=== PATIENT | male | born 1940 | race Caucasian/White ===

== ENCOUNTER → 2018-07-23 | Outpatient (CLI) | payer OTHER ==
[~2018-07-23] MED LIST: /TAMS4CA; ACET65TA; AGGRCAP; ALLO300T; AMIT25TA2; AMITRIPTYLINE; ATENPOW; AVAP300T; BABY81CH; CATA0.2T; JANUVIA; KLOR10TA; LASI40TA; ROSU10TA; TENO50TA; TERA5CAP
--- NOTE | 2018-07-23 09:40 | REP ---
Chest two views HISTORY: Cough miles Comparison: None The lungs are clear. The heart is normal in size. The pulmonary vasculature is normal in appearance. The bony structure is intact. IMPRESSION: No acute disease. Electronically Signed by Oscar Block MD 07/23/2018 09:31 A
== END ==
LOC: M WUC 09:16
PROVIDERS: ATTEND Internal Medicine
DX: R05 Cough (principal); R49.0 Dysphonia; E78.00 Pure hypercholesterolemia, unspecified

== ENCOUNTER → 2018-07-23 | Outpatient (REF) | payer OTHER ==
[2018-07-25 08:41] LABS: LDL DIRECT 110 mg/dL (0-99)
== END ==
LOC: M LAB REF 16:39
PROVIDERS: ATTEND Internal Medicine
DX: E78.00 Pure hypercholesterolemia, unspecified (principal)

== ENCOUNTER → 2018-12-26 | Outpatient (CLI) | payer MEDICARE ==
[~2018-12-26] MED LIST changes: -/TAMS4CA; +AGGR1CAP; -AGGRCAP; +CRES10TA32; +FLOM0.4C39; -ROSU10TA
--- NOTE | 2018-12-26 12:33 | REP ---
Clinical: Dizziness . Technique: Bosch scale and color Doppler evaluation using linear high frequency transducer Findings: Two-dimensional bosch scale and color images demonstrate mild mixed atheromatous plaquing with normal laminar flow and no appreciable narrowing. Color Doppler interrogation demonstrates normal arterial wave patterns and velocities with scattered spectral broadening. Normal flow direction is appreciated in the bilateral vertebral arteries. RIGHT (cm/s) LEFT (cm/s) ICA peak systolic velocity 103.0 87.8 ICA diastolic velocity 30.1 31.3 ECA peak systolic velocity 72.0 90.4 CCA peak systolic velocity 76.4 73.8 ICA/CCA ratio 1.35 1.19 Impression: No hemodynamically significant areas of narrowing or stenosis appreciated. Based on set standards narrowing falls within the less than 50% range. Electronically Signed by Jovon Chacon MD 12/26/2018 12:25 P
== END ==
LOC: M RAD 10:59
PROVIDERS: ATTEND Internal Medicine Cardiovascular Disease
DX: R42 Dizziness and giddiness (principal); I25.119 Atherosclerotic heart disease of native coronary artery with unspecified angina pectoris

== ENCOUNTER → 2019-02-24 | Outpatient (REF) | payer MEDICARE ==
[2019-02-24 20:58] LABS: FOLATE > 24.0 NG/ML; VITAMIN B12 LEVEL 570 PG/ML
== END ==
LOC: M LAB REF 16:56
PROVIDERS: ATTEND Internal Medicine
DX: E11.42 Type 2 diabetes mellitus with diabetic polyneuropathy (principal)

== ENCOUNTER → 2020-12-01 | Outpatient (REF) | payer MEDICARE | LOC: M LAB REF 17:14 | PROVIDERS: ATTEND Internal Medicine | DX: H53.8 Other visual disturbances (principal) ==

== ENCOUNTER → 2021-01-11 | Outpatient (REF) | payer MEDICARE ==
[2021-01-11 17:36] LABS: FOLATE 7.7 NG/ML; TOTAL PROTEIN 6.8 GM/DL (6.4-8.2)
== END ==
LOC: M LAB REF 16:20
PROVIDERS: ATTEND Internal Medicine
DX: E53.8 Deficiency of other specified B group vitamins (principal); G60.9 Hereditary and idiopathic neuropathy, unspecified

== ENCOUNTER → 2021-03-02 | Outpatient (REF) | payer MEDICARE ==
[2021-03-02 16:53] LABS: TOTAL PROTEIN 6.4 GM/DL (6.4-8.2)
[2021-03-02 17:01] LABS: VITAMIN B12 LEVEL 334 PG/ML
[2021-03-02 17:02] LABS: FOLATE 9.7 NG/ML
[2021-03-07 08:46] LABS: ALBUMIN 3.81 GM/DL (3.29-5.55); ALBUMIN % 59.5 % (55.8-66.1); ALPHA-1-GLOBULIN % 3.7 % (2.9-4.9); ALPHA-1-GLOBULINS 0.24 GM/DL (0.17-0.41); ALPHA-2-GLOBULINS % 10.9 % (7.1-11.8); BETA-1-GLOBULINS 0.43 GM/DL (0.28-0.60); BETA-1-GLOBULINS % 6.7 % (4.7-7.2); BETA-2-GLOBULINS 0.33 GM/DL (0.19-0.55); BETA-2-GLOBULINS % 5.2 % (3.2-6.5)
[2021-03-07 09:15] LABS: IMMUNOTYPING SERUM IGM ABNORMAL (NORMAL); IMMUNOTYPING SERUM KAPPA ABNORMAL (NORMAL)
== END ==
LOC: M LAB REF 16:00
PROVIDERS: ATTEND Internal Medicine
DX: E53.9 Vitamin B deficiency, unspecified (principal); G62.9 Polyneuropathy, unspecified

== ENCOUNTER → 2021-06-08 | Outpatient (CLI) | payer MEDICARE ==
--- NOTE | 2021-06-08 09:26 | REP ---
INDICATION: FATTY LIVER COMPARISON: None. TECHNIQUE: Real time arthur scale ultrasound examination using curved array transducer. FINDINGS: Liver is diffusely echogenic with poor through transmission and areas of fatty sparing adjacent to the gallbladder fossa. Possible small 1.3 cm hepatic cyst in the right lobe. Pancreas is incompletely evaluated due to interposed bowel gas. The gallbladder is normal and without gallstones, wall thickening, or pericholecystic fluid. No biliary ductal dilatation is appreciated and the common bile duct measures 3.3 mm diameter. Right kidney is normal in reniform shape without hydronephrosis and measures 11.4 x 5.7 x 5.9 cm. No ascites in the visualized right upper quadrant. IMPRESSION: Hepatosteatosis. <Electronically signed by Jovon Chacon > 06/08/21 [id number]
== END ==
LOC: M RAD 08:38
PROVIDERS: ATTEND Internal Medicine
DX: K76.0 Fatty (change of) liver, not elsewhere classified (principal)

== ENCOUNTER → 2021-10-18 | Outpatient (CLI) | payer MEDICARE ==
[2021-10-18 22:35] LABS: FOLATE 6.4 NG/ML
== END ==
LOC: M WUC 10:07
PROVIDERS: ATTEND Physician Assistant Medical
DX: R06.02 Shortness of breath (principal); R42 Dizziness and giddiness; E53.9 Vitamin B deficiency, unspecified; Z79.899 Other long term (current) drug therapy; Z79.82 Long term (current) use of aspirin

== ENCOUNTER → 2023-07-11 | Outpatient (CLI) | payer MEDICARE ==
[2023-07-11 13:32] LABS: BLOOD UREA NITROGEN 12 MG/DL (9-23); CALCIUM LEVEL 8.3 MG/DL (8.3-10.6); CARBON DIOXIDE LEVEL 30 MMOL/L (20-31); CHLORIDE LEVEL 106 MMOL/L (98-107); CREATININE FOR GFR 1.18 MG/DL (0.70-1.30); GLOMERULAR FILTRATION RATE > 60.0 (>35); GLUCOSE, FASTING 103 MG/DL (74-106); POTASSIUM SERUM 3.7 MMOL/L (3.5-5.1); SODIUM LEVEL 143 MMOL/L (136-145)
== END ==
LOC: M WUC 09:46
PROVIDERS: ATTEND Orthopaedic Surgery Orthopaedic Surgery of the Spine
DX: Z01.818 Encounter for other preprocedural examination (principal); M54.50 Low back pain, unspecified

== ENCOUNTER → 2023-08-08 | Outpatient (REF) | payer MEDICARE | LOC: M LABSMT 13:43 | PROVIDERS: ATTEND Physician Assistant | DX: R33.9 Retention of urine, unspecified (principal); Z53.9 Procedure and treatment not carried out, unspecified reason ==

== ENCOUNTER → 2023-09-03 | Outpatient (CLI) | payer MEDICARE ==
[~2023-09-03] MED LIST changes: +ALLO300T2 PO; +ATOR40TA75 PO; +BUPR150T12 PO; +CLIN-250; +CLOP75TA2 PO; +FINA5TAB2 PO; +FURO40TA2 PO; +GABA-282 PO; +HYDR-3713; +HYDR-3713 PO; +JARD1TAB PO; +LEXA1TAB PO; +METF500T13 PO; +MIDO2.5T PO; +OXYB5TAB14 PO; +POTA1TAB24 PO; +TAMS1CAP17 PO; +TERA10CA3; +TRAZ-252 PO; +TRES1INJ SQ
== END ==
LOC: M LAB 13:46
PROVIDERS: ATTEND Urology
DX: R33.9 Retention of urine, unspecified (principal); Z12.5 Encounter for screening for malignant neoplasm of prostate

== ENCOUNTER → 2023-09-03 | Outpatient (CLI) | payer MEDICARE ==
[2023-09-03 15:13] LABS: HEMATOCRIT 40.6 % (42.0-52.0); HEMOGLOBIN 13.1 g/dl (13.5-17.5); MEAN CORPUSCULAR HEMOGLOBIN 28.1 pg (27.0-33.0); MEAN CORPUSCULAR HGB CONC 32.3 g/dl (32.0-36.5); MEAN CORPUSCULAR VOLUME 86.9 fl (80.0-96.0); PLATELET COUNT, AUTOMATED 265 10^3/uL (150-450); RED BLOOD COUNT 4.67 10^6/uL (4.30-6.10); WHITE BLOOD COUNT 9.9 10^3/uL (4.0-10.0)
[2023-09-03 15:42] LABS: ALBUMIN 3.7 G/DL (3.2-5.2); ALKALINE PHOSPHATASE 124 U/L (46-116); ALT/SGPT 14 U/L (7.0-40); AST/SGOT 11 U/L (<34); BILIRUBIN,TOTAL 0.4 MG/DL (0.3-1.2); BLOOD UREA NITROGEN 17 MG/DL (9-23); CALCIUM LEVEL 8.9 MG/DL (8.3-10.6); CARBON DIOXIDE LEVEL 28 MMOL/L (20-31); CHLORIDE LEVEL 100 MMOL/L (98-107); CREATININE FOR GFR 1.09 MG/DL (0.70-1.30); GLOMERULAR FILTRATION RATE > 60.0 (>35); GLUCOSE, FASTING 169 MG/DL (74-106); POTASSIUM SERUM 3.8 MMOL/L (3.5-5.1); SODIUM LEVEL 137 MMOL/L (136-145); TOTAL PROTEIN 6.7 G/DL (5.7-8.2)
== END ==
LOC: M RAD 13:44
PROVIDERS: ATTEND Physician Assistant
DX: I44.0 Atrioventricular block, first degree (principal); I45.10 Unspecified right bundle-branch block; R33.9 Retention of urine, unspecified

== ENCOUNTER 2023-09-09 06:00 | Day surgery (SDC) | payer MEDICARE ==
[~2023-09-09] VITALS: Ht 177.8 cm; Wt 107.5 kg
[~2023-09-09 06:00] MED LIST changes: -CLIN-250; -LEXA1TAB PO; -OXYB5TAB14 PO; -TERA10CA3
[2023-09-09] MEDS ORDERED: TERA10CA3 (06:40)
[2023-09-09] MEDS ORDERED: LEXA1TAB PO (06:40)
[2023-09-09] MEDS ORDERED: CLIN-250 (06:40)
[2023-09-09] MEDS ORDERED: ISOVUE-300 61% 100ML VIAL As Ordered ONE (07:08)
[2023-09-09] MEDS ORDERED: propofoL 200 MG/20 ML VIAL As Ordered ONE (07:15)
[2023-09-09] MEDS ORDERED: fentaNYL 100 MCG/2 ML INJECTION As Ordered ONE (07:15)
[2023-09-09] MEDS ORDERED: METOCLOPRAMIDE INJ 10MG/2ML VIAL As Ordered ONE (07:15)
[2023-09-09] MEDS ORDERED: ONDANSETRON 4MG 2ML VIAL As Ordered ONE (07:15)
[2023-09-09] MEDS ORDERED: LIDOCAINE 2% 100MG/5ML SDV (FOR ANES.) As Ordered ONE (07:15)
[2023-09-09] MEDS: LR 1,000 ML IV SCH (07:16)
[2023-09-09] MEDS: ceFAZolin SOD 2 GM in IV 1 EA IV ONE (07:43)
[2023-09-09] MEDS ORDERED: ACETAMINOPHEN 1000MG 100ML IV BAG As Ordered ONE (07:51)
[2023-09-09] MEDS ORDERED: HYDROMORPHONE HCL 0.5 MG/ 0.5 ML SYRINGE IV PRN (08:45)
[2023-09-09] MEDS ORDERED: fentaNYL 100 MCG/2 ML INJECTION IV PRN (08:45)
[2023-09-09] MEDS ORDERED: ONDANSETRON 4MG 2ML VIAL IV PRN (08:45)
[2023-09-09] MEDS ORDERED: LR 1,000 ML IV SCH (08:45)
[2023-09-09] MEDS ORDERED: OXYB5TAB14 PO (08:50)
[2023-09-09] MEDS: oxyCODONE 5MG TAB PO PRN (09:25)
[2023-09-09 09:30] VITALS: BP 130/64; TEMP 98.3; O2SAT 93
[2023-09-16 18:09] LABS: Ca Ox Monohydrate 100 % (.); Size 4x4 mm (.)
== END 2023-09-09 10:03 | disposition home or self-care (01) ==
LOC: M SDC 06:00
PROVIDERS: ATTEND Urology
DX: N40.2 Nodular prostate without lower urinary tract symptoms (principal); N21.0 Calculus in bladder; E11.9 Type 2 diabetes mellitus without complications; G47.30 Sleep apnea, unspecified; Z95.5 Presence of coronary angioplasty implant and graft; Z79.899 Other long term (current) drug therapy
CPT/HCPCS: 52317; 52601; 82365; 88305; C1769; C1894; C2617; J0131; J0690; J2405; J2765; J3010

== ENCOUNTER → 2023-09-25 | Outpatient (REF) | payer MEDICARE ==
[~2023-09-25] MED LIST changes: +CLIN-250; +LEXA1TAB PO; +OXYB5TAB14 PO; +TERA10CA3
== END ==
LOC: M LAB REF 13:02
PROVIDERS: ATTEND Internal Medicine
DX: M48.062 Spinal stenosis, lumbar region with neurogenic claudication (principal); M54.50 Low back pain, unspecified

== ENCOUNTER → 2023-10-22 | Outpatient (REF) | payer MEDICARE | LOC: M LAB REF 12:40 | PROVIDERS: ATTEND Internal Medicine | DX: M54.50 Low back pain, unspecified (principal) ==

== ENCOUNTER → 2024-04-07 | Outpatient (REF) | payer MEDICARE ==
[~2024-04-07] MED LIST changes: +CEFD1CAP9 PO; +DOXY100C82 PO; +GABA-1172 PO; -GABA-282 PO; +MECL-86 PO; -MIDO2.5T PO; +MIDO2.5T3 PO
[2024-04-07 18:55] LABS: APPEARANCE, URINE HAZY (CLEAR); BACTERIA, URINE AUTO 1+ (NEGATIVE); BILIRUBIN, URINE AUTO NEGATIVE (NEGATIVE); BLOOD, URINE BLOOD 1+ (NEGATIVE); COLOR, URINE YELLOW (YELLOW); GLUCOSE, URINE (UA) AUTO 3+ mg/dL (NEGATIVE); KETONE, URINE AUTO NEGATIVE (NEGATIVE); LEUKOCYTE ESTERASE, URINE AUTO 3+ (NEGATIVE); NITRITE, URINE AUTO POSITIVE (NEGATIVE); PROTEIN, URINE AUTO NEGATIVE (NEGATIVE); RBC, URINE AUTO 1 /HPF (0-3); SQUAMOUS EPITHELIAL CELL UR AU 0 /HPF (0-6); UROBILINOGEN, URINE AUTO 0.2 mg/dL (0.0-2.0); WBC, URINE AUTO TNTC /HPF (0-3)
== END ==
LOC: M SMT 17:22
PROVIDERS: ATTEND Urology
DX: N40.0 Benign prostatic hyperplasia without lower urinary tract symptoms (principal)

== ENCOUNTER 2024-04-15 12:25 | Inpatient (IN) | payer MEDICARE ==
[~2024-04-15] VITALS: Ht 175.3 cm; Wt 101.3 kg
[~2024-04-15 12:25] MED LIST changes: -CEFD1CAP9 PO; -DOXY100C82 PO; -MECL-86 PO; +MIDO2.5T PO; -MIDO2.5T3 PO
[2024-04-15 14:26] LABS: CALCIUM LEVEL 9.1 MG/DL (8.3-10.6); CREATININE FOR GFR 1.93 MG/DL (0.70-1.30); GLOMERULAR FILTRATION RATE 35.7 (>35); POTASSIUM SERUM 4.7 MMOL/L (3.5-5.1)
[2024-04-15 14:30] LABS: BASO % 0.2 % (0.0-1.0); EOS # 0.1 10^3/uL (0.0-0.5); EOS % 0.5 % (0.0-3.0); HEMATOCRIT 39.8 % (42.0-52.0); HEMOGLOBIN 12.9 g/dl (13.5-17.5); LYMPH # 0.9 10^3/uL (1.5-5.0); LYMPH % 7.3 % (24.0-44.0); MEAN CORPUSCULAR HEMOGLOBIN 27.9 pg (27.0-33.0); MEAN CORPUSCULAR HGB CONC 32.4 g/dl (32.0-36.5); MEAN CORPUSCULAR VOLUME 86.1 fl (80.0-96.0); MONO % 8.2 % (2.0-8.0); NEUTROPHILS # 9.8 10^3/uL (1.5-8.5); PLATELET COUNT, AUTOMATED 574 10^3/uL (150-450); RED BLOOD COUNT 4.62 10^6/uL (4.30-6.10); WHITE BLOOD COUNT 11.7 10^3/uL (4.0-10.0)
[2024-04-15] MEDS: LIDOCAINE 2% 5ML JELLY UROJET TOP ONE (15:10)
[2024-04-15] MEDS: ACETAMINOPHEN *IV* 1,000 MG in IV 1 EA IV ONE (15:16)
[2024-04-15] MEDS: MIDODRINE 2.5 MG TAB PO SCH (16:00)
[2024-04-15] MEDS: cefTRIAXone SOD 1 GM in DEXTROSE 5% (D5W) MINI-BAG/ADV 50 ML IV ONE (16:10)
[2024-04-15] MEDS ORDERED: NS 1,000 ML IV SCH (16:10)
[2024-04-15] MEDS: NS 1,000 ML IV SCH (16:45)
[2024-04-15] MEDS ORDERED: GLUCOSE 4 GM CHEW PO PRN (16:45)
[2024-04-15] MEDS ORDERED: DEXTROSE 50% 50ML SYRINGE IV PRN (16:45)
[2024-04-15] MEDS ORDERED: GLUCAGON INJ 1MG VIAL SC PRN (16:45)
[2024-04-15] MEDS ORDERED: MORPHINE 2 MG/ML 1ML VIAL IV PRN (16:55)
[2024-04-15] MEDS ORDERED: MECL-86 PO (17:03)
[2024-04-15] MEDS ORDERED: HOME MED LIST COMPLETE! XX SCH (17:05)
[2024-04-15] MEDS ORDERED: PILL CUTTER 1 EACH XX PRN (17:25)
[2024-04-15] MEDS: INSULIN LISPRO (NovoLOG) PER UNIT SC SCH ×2 (17:30→20:52)
[2024-04-15] MEDS ORDERED: KETOROLAC 60MG 2ML VIAL As Ordered ONE (17:46)
[2024-04-15] MEDS ORDERED: ONDANSETRON 4MG 2ML VIAL As Ordered ONE (17:46)
[2024-04-15] MEDS ORDERED: LIDOCAINE 2% 100MG/5ML SDV (FOR ANES.) As Ordered ONE (17:46)
[2024-04-15] MEDS ORDERED: propofoL 200 MG/20 ML VIAL As Ordered ONE (17:46)
[2024-04-15] MEDS ORDERED: fentaNYL 100 MCG/2 ML INJECTION As Ordered ONE (17:48)
[2024-04-15] MEDS ORDERED: ACETAMINOPHEN 1000MG 100ML IV BAG As Ordered ONE (18:09)
[2024-04-15] MEDS: ISOVUE-300 61% 100ML VIAL As Ordered ONE (18:29)
[2024-04-15] MEDS: LIDOCAINE 2% 5ML JELLY UROJET As Ordered ONE (18:29)
[2024-04-15 20:20] VITALS: BP 171/72; TEMP 96.8; O2SAT 95
[2024-04-15 20:50] VITALS: BP 140/62; TEMP 97.1; O2SAT 96
[2024-04-15] MEDS: traZODone 50 MG TAB PO SCH (21:27)
[2024-04-15] MEDS: GABAPENTIN 300 MG CAP PO SCH (21:27)
[2024-04-15] MEDS: ATORVASTATIN 20 MG TAB PO SCH (21:27)
[2024-04-15] MEDS: HEPARIN SOD (PORCINE) 5000UNITS/ML 1ML VIAL/SYRINGE SC SCH (21:28)
[2024-04-15 21:50] VITALS: BP 134/63; TEMP 97.3; O2SAT 96
[2024-04-15 22:50] VITALS: BP 117/60; TEMP 97.7; O2SAT 92
[2024-04-15 23:50] VITALS: BP 119/61; TEMP 97.1; O2SAT 94
[2024-04-16] VITALS (7 sets, daily range): BP systolic 110–147; BP diastolic 61–68; TEMP 96.5–98; O2SAT 93–98
[2024-04-16] MEDS: buPROPion **XL** TABLET 150MG (WELLBUTRIN XL) PO SCH (08:48)
[2024-04-16] MEDS: CLOPIDOGREL 75 MG TAB PO SCH (08:48)
[2024-04-16] MEDS: LEVEMIR (INSULIN DETEMIR) 1 UNITS/0.01ML SC SCH (08:48)
[2024-04-16] MEDS: FINASTERIDE 5MG TAB PO SCH (08:48)
[2024-04-16 09:14] LABS: BASO % 0.1 % (0.0-1.0); HEMATOCRIT 38.7 % (42.0-52.0); HEMOGLOBIN 12.7 g/dl (13.5-17.5); LYMPH # 0.6 10^3/uL (1.5-5.0); LYMPH % 4.7 % (24.0-44.0); MEAN CORPUSCULAR HEMOGLOBIN 28.5 pg (27.0-33.0); MEAN CORPUSCULAR HGB CONC 32.8 g/dl (32.0-36.5); MEAN CORPUSCULAR VOLUME 86.8 fl (80.0-96.0); MONO # 0.4 10^3/uL (0.0-0.8); MONO % 3.4 % (2.0-8.0); NEUTROPHILS # 10.7 10^3/uL (1.5-8.5); NEUTROPHILS % 91.1 % (36.0-66.0); PLATELET COUNT, AUTOMATED 543 10^3/uL (150-450); RED BLOOD COUNT 4.46 10^6/uL (4.30-6.10); WHITE BLOOD COUNT 11.7 10^3/uL (4.0-10.0)
[2024-04-16 09:40] LABS: CALCIUM LEVEL 9.1 MG/DL (8.3-10.6); CREATININE FOR GFR 1.69 MG/DL (0.70-1.30); GLOMERULAR FILTRATION RATE 41.7 (>35); MAGNESIUM LEVEL 2.2 MG/DL (1.8-2.4); POTASSIUM SERUM 4.7 MMOL/L (3.5-5.1)
[2024-04-16] MEDS: cefTRIAXone SOD 1 GM in DEXTROSE 5% (D5W) MINI-BAG/ADV 50 ML IV SCH (15:20)
[2024-04-16] MEDS: ACETAMINOPHEN 325 MG TAB PO PRN (17:27)
[2024-04-16] MEDS: MAALOX 30 ML SUSP *UDC PO PRN (22:25)
[2024-04-17 04:00] VITALS: BP 123/68; TEMP 97.9; O2SAT 93
[2024-04-17 06:05] LABS: BASO % 0.2 % (0.0-1.0); EOS # 0.1 10^3/uL (0.0-0.5); EOS % 1.1 % (0.0-3.0); LYMPH # 1.3 10^3/uL (1.5-5.0); LYMPH % 11.5 % (24.0-44.0); MEAN CORPUSCULAR HEMOGLOBIN 28.8 pg (27.0-33.0); MEAN CORPUSCULAR HGB CONC 32.7 g/dl (32.0-36.5); MEAN CORPUSCULAR VOLUME 87.9 fl (80.0-96.0); MONO # 0.8 10^3/uL (0.0-0.8); MONO % 7.3 % (2.0-8.0); NEUTROPHILS # 8.9 10^3/uL (1.5-8.5); PLATELET COUNT, AUTOMATED 526 10^3/uL (150-450); RED BLOOD COUNT 3.72 10^6/uL (4.30-6.10); WHITE BLOOD COUNT 11.3 10^3/uL (4.0-10.0)
[2024-04-17 06:09] LABS: HEMATOCRIT 32.7 % (42.0-52.0); HEMOGLOBIN 10.7 g/dl (13.5-17.5)
[2024-04-17 06:27] LABS: CALCIUM LEVEL 8.4 MG/DL (8.3-10.6); CREATININE FOR GFR 1.4 MG/DL (0.70-1.30); GLOMERULAR FILTRATION RATE 51.8 (>35); MAGNESIUM LEVEL 2.1 MG/DL (1.8-2.4); POTASSIUM SERUM 4.3 MMOL/L (3.5-5.1)
[2024-04-17 08:12] VITALS: BP 132/67
[2024-04-17] MEDS: LEVEMIR (INSULIN DETEMIR) 1 UNITS/0.01ML SC SCH (08:16)
[2024-04-17] MEDS ORDERED: FURO40TA2 PO (10:28)
[2024-04-17] MEDS ORDERED: CEFD1CAP9 PO (10:28)
[2024-04-17] MEDS ORDERED: POTA1TAB24 PO (10:30)
[2024-04-17 12:00] VITALS: BP 125/70; TEMP 97.5; O2SAT 98
[2024-04-18] MEDS ORDERED: DOXY100C82 PO (12:51)
== END 2024-04-17 14:25 | disposition home or self-care (01) | DRG 660 ==
LOC: M ED 12:25 → M ED INP 16:42 → M PCU 20:20 → M MS5PR 04-16 14:50
PROVIDERS: ADMIT Internal Medicine; ATTEND Internal Medicine
PROC: 0T778DZ Dilation of Left Ureter with Intraluminal Device, Via Natural or Artificial Opening Endoscopic (ICD-10-PCS; principal; 2024-04-15 17:00)
DX: N13.6 Pyonephrosis (principal); E87.1 Hypo-osmolality and hyponatremia; I25.10 Atherosclerotic heart disease of native coronary artery without angina pectoris; N17.9 Acute kidney failure, unspecified; I95.89 Other hypotension; E11.22 Type 2 diabetes mellitus with diabetic chronic kidney disease; E78.5 Hyperlipidemia, unspecified; G47.33 Obstructive sleep apnea (adult) (pediatric); N40.0 Benign prostatic hyperplasia without lower urinary tract symptoms; M48.061 Spinal stenosis, lumbar region without neurogenic claudication; Z66 Do not resuscitate; Z96.653 Presence of artificial knee joint, bilateral; N18.30 Chronic kidney disease, stage 3 unspecified; F39 Unspecified mood [affective] disorder; Z79.4 Long term (current) use of insulin; Z79.84 Long term (current) use of oral hypoglycemic drugs; Z79.899 Other long term (current) drug therapy; Z95.5 Presence of coronary angioplasty implant and graft

== ENCOUNTER → 2024-06-02 | Outpatient (CLI) | payer MEDICARE ==
[~2024-06-02] MED LIST changes: +CEFD1CAP9 PO; +DOXY100C82 PO; +MECL-86 PO; -MIDO2.5T PO; +MIDO2.5T3 PO; +POTA1TAB23 PO
[2024-06-02 17:20] LABS: HEMATOCRIT 45.3 % (42.0-52.0); HEMOGLOBIN 14.8 g/dl (13.5-17.5); MEAN CORPUSCULAR HEMOGLOBIN 28.7 pg (27.0-33.0); MEAN CORPUSCULAR HGB CONC 32.7 g/dl (32.0-36.5); PLATELET COUNT, AUTOMATED 268 10^3/uL (150-450); RED BLOOD COUNT 5.15 10^6/uL (4.30-6.10); WHITE BLOOD COUNT 8.7 10^3/uL (4.0-10.0)
[2024-06-02 17:25] LABS: ALBUMIN 3.9 G/DL (3.2-5.2); ALKALINE PHOSPHATASE 156 U/L (40-129); ALT/SGPT 17 U/L (7.0-40); AST/SGOT < 8 U/L (<34); BILIRUBIN,TOTAL 0.4 MG/DL (0.3-1.2); BLOOD UREA NITROGEN 22 MG/DL (9-23); CALCIUM LEVEL 9.6 MG/DL (8.3-10.6); CARBON DIOXIDE LEVEL 30 MMOL/L (20-31); CHLORIDE LEVEL 101 MMOL/L (98-107); CREATININE FOR GFR 1.15 MG/DL (0.70-1.30); GLOMERULAR FILTRATION RATE > 60.0 (>35); GLUCOSE, FASTING 185 MG/DL (74-106); POTASSIUM SERUM 3.8 MMOL/L (3.5-5.1); SODIUM LEVEL 143 MMOL/L (136-145); TOTAL PROTEIN 7.5 G/DL (5.7-8.2)
== END ==
LOC: M WUC 14:44
PROVIDERS: ATTEND Urology
DX: N20.1 Calculus of ureter (principal)

== ENCOUNTER 2024-06-11 09:28 | Day surgery (SDC) | payer MEDICARE ==
[~2024-06-11] VITALS: Ht 175.3 cm; Wt 107.5 kg
[2024-06-11] MEDS ORDERED: fentaNYL 100 MCG/2 ML INJECTION As Ordered ONE (11:58)
[2024-06-11] MEDS ORDERED: ACETAMINOPHEN 1000MG/100ML IV BAG As Ordered ONE (13:03)
[2024-06-11] MEDS ORDERED: ONDANSETRON 4MG 2ML VIAL As Ordered ONE (13:04)
[2024-06-11] MEDS ORDERED: LIDOCAINE 2% 100MG/5ML SDV (FOR ANES.) As Ordered ONE (13:04)
[2024-06-11] MEDS ORDERED: propofoL 200 MG/20 ML VIAL As Ordered ONE (13:04)
[2024-06-11] MEDS: ceFAZolin SOD 2 GM in IV 1 EA IV ONE (14:06)
[2024-06-11] MEDS ORDERED: ePHEDrine SULFATE 25 MG/5 ML(5MG/ML) SYRINGE As Ordered ONE (14:30)
[2024-06-11] MEDS ORDERED: MACR100C43 PO (14:43)
[2024-06-11] MEDS: ISOVUE-300 61% 100ML VIAL As Ordered ONE (14:46)
[2024-06-11 16:15] VITALS: BP 142/78; TEMP 97.7; O2SAT 96
== END 2024-06-11 16:33 | disposition home or self-care (01) ==
LOC: M SDC 09:28
PROVIDERS: ATTEND Urology
DX: N20.1 Calculus of ureter (principal); E11.9 Type 2 diabetes mellitus without complications; G47.30 Sleep apnea, unspecified; I25.10 Atherosclerotic heart disease of native coronary artery without angina pectoris; Z95.5 Presence of coronary angioplasty implant and graft; Z79.899 Other long term (current) drug therapy
CPT/HCPCS: 52356; 76000; 82365; C1769; C2617; J0131; J0690; J1100; J2405; J3010